=== PATIENT | female | born 1950 | race Two or more races ===

== ENCOUNTER 2019-06-25 02:52 | Emergency (ER) | payer OTHER ==
[2019-06-25 03:23] VITALS: BP 149/80; PULSE 88; TEMP 98.2; BMI 28.5
--- NOTE | 2019-06-25 04:00 | PDOC ---
History of Present Illness - General Chief Complaint: Bite Stated Complaint: INECT BITE Time Seen by Provider: 06/25/19 03:33 - History of Present Illness Initial Comments: 06/25/19 03:49 69 F with h/o HTN presents to ED with rash. Pt states that she was at her mother 's apartment cleaning when she discovered several painful lesions on her legs and arms. Pt reports that she has had similar rash before, also while she was cleaning her mother's apartment. She went to an urgent care and was diagnosed with spider bites. Pt states she was given abx that appeared to help. The lesions are localized to both legs and arms. She notes individual blisters with surrounding swelling and redness. She states that some are itchy but most are just tender. Denies F/C. Pt is on lisinopril and HCTZ. No other meds. Denies any oral lesions. Past History - Past Medical History Allergies/Adverse Reactions: Allergies Allergy/AdvReac Type Severity Reaction Status Date / Time Penicillins Allergy Verified 06/25/19 03:22 COPD: No HTN: Yes - Psycho Social/Smoking Cessation Hx Smoking History: Never smoked Review of Systems - Review of Systems Comments:: 06/25/19 03:52 "GENERAL/CONSTITUTIONAL: No fever or chills. No weakness. HEAD, EYES, EARS, NOSE AND THROAT: No change in vision. No ear pain or discharge. No sore throat. CARDIOVASCULAR: No chest pain, no shortness of breath, no loss of consciousness RESPIRATORY: No cough, wheezing, or hemoptysis. GASTROINTESTINAL: No nausea, vomiting, diarrhea or constipation. GENITOURINARY: No dysuria, frequency, or change in urination. MUSCULOSKELETAL: No joint or muscle swelling or pain. No neck or back pain. SKIN: + vesicular rash NEUROLOGIC: No vertigo, no change in strength/sensation. ENDOCRINE: No increased thirst. No abnormal weight change. HEMATOLOGIC/LYMPHATIC: No anemia, easy bleeding, or history of blood clots. ALLERGIC/IMMUNOLOGIC: No hives or skin allergy. *Physical Exam - Vital Signs Last Vital Signs Temp Pulse Resp BP Pulse Ox 98.2 F 88 18 149/80 98 06/25/19 03:20 06/25/19 03:20 06/25/19 03:20 06/25/19 03:20 06/25/19 03:20 - Physical Exam Comments: 06/25/19 04:00 "GENERAL: Awake, alert, and fully oriented, in no acute distress. HEAD: No signs of trauma EYES: PERRLA, EOMI, sclera anicteric, conjunctiva clear ENT: Auricles normal inspection, hearing grossly normal, nares patent, oropharynx clear without exudates. Moist mucosa NECK: Nontender, no stepoffs, Normal ROM, supple, no lymphadenopathy, JVD, or masses LUNGS: Breath sounds equal, clear to auscultation bilaterally. No wheezes, and no crackles HEART: Regular rate and rhythm, normal S1 and S2, no murmurs, rubs or gallops ABDOMEN: Soft, nontender, normoactive bowel sounds. No guarding, no rebound. No masses EXTREMITIES: Normal range of motion, no edema. No clubbing or cyanosis. No cords, erythema, or tenderness NEUROLOGICAL: Cranial nerves II through XII intact. 5/5 strength and sensation in all extremities, Normal speech, normal gait, normal cerebellar function SKIN: + Scattered vesicles with surrounding erythema and induration on bilateral legs and arms, not in dermatomal distribution Medical Decision Making - Medical Decision Making 06/25/19 04:00 69 F with multiple vesicular lesions with surrounding erythema and induration. Possible insect bites with secondary allergic reaction. Possible superinfection. Does not appear consistent with drug rash. Does not appear to be zoster. - Prednisone - Keflex to cover superinfection - Derm referral Pt is well appearing, with normal vitals. Clinically stable for DC at this time. I discussed the physical exam findings, ancillary test results and final diagnoses with the patient. I answered all of the patient's questions. The patient was satisfied with the care received and felt comfortable with the discharge plan and treatment plan. The patient agrees to follow up with the primary care physician within 24-72 hours. Discharge - Discharge Information Problems reviewed: Yes Clinical Impression/Diagnosis: Rash, Insect bite, Cellulitis Disposition: HOME - Follow up/Referral Referrals: Laura Avina MD [Staff Physician] - - Patient Discharge Instructions Patient Printed Discharge Instructions: DI for Insect Bites and Stings Additional Instructions: Your rash may be due to insect bites. You are likely having an allergic reaction to the bites, which is why you are having swelling and redness. However , this could also be a sign of a bacterial infection. Take the antibiotics as prescribed to treat it. Take benadryl at night to help alleviate the itching. If you experience worsening redness, pain, swelling, fevers, or any other concerning symptoms, return to the ER immediately. Otherwise, follow up with your primary doctor within 48 hours for re-evaluation. - Post Discharge Activity
[2019-06-25] MEDS ORDERED: predniSONE 20 MG TABLET (UD) PO ONE (04:03)
[2019-06-25] MEDS ORDERED: CEPHALEXIN MONOHYDRATE 500 MG CAPSULE (UD) PO ONE (04:05)
[2019-06-25] MEDS ORDERED: predniSONE 20 MG TABLET (UD) ONE (04:29)
[2019-06-25] MEDS ORDERED: CEPHALEXIN MONOHYDRATE 500 MG CAPSULE (UD) ONE (04:30)
== END 2019-06-25 04:36 | disposition home or self-care (01) ==
LOC: JER 02:52
DX: S80.862A Insect bite (nonvenomous), left lower leg, initial encounter (principal); S80.861A Insect bite (nonvenomous), right lower leg, initial encounter; S40.862A Insect bite (nonvenomous) of left upper arm, initial encounter; S40.861A Insect bite (nonvenomous) of right upper arm, initial encounter; L03.116 Cellulitis of left lower limb; L03.115 Cellulitis of right lower limb; L03.114 Cellulitis of left upper limb; L03.113 Cellulitis of right upper limb; W57.XXXA Bitten or stung by nonvenomous insect and other nonvenomous arthropods, initial encounter; Y93.E9 Activity, other interior property and clothing maintenance; Y92.038 Other place in apartment as the place of occurrence of the external cause; Y99.8 Other external cause status; I10 Essential (primary) hypertension; Z88.0 Allergy status to penicillin
CPT/HCPCS: 99281-25